=== PATIENT | male | born 1965 | race Caucasian/White ===

== ENCOUNTER 2018-08-14 05:01 | Emergency (ER) | payer BC ==
[~2018-08-14] VITALS: Wt 104.3 kg
--- NOTE | ~2018-08-14 | EKG ---
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
--- NOTE | ~2018-08-14 | EKG ---
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
--- NOTE | ~2018-08-14 | EKG ---
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
[~2018-08-14 05:01] MED LIST: BENICAR HCT 12.1 TAB PO; NEXIUM20 MG/PACK PO
[2018-08-14] MEDS ORDERED: LABETALOL HCL100 MG PO (05:05)
[2018-08-14 05:23] LABS: BASO # 0.1 10*3/uL (0.0-0.1); EOS # 0.1 10*3/uL (0.0-0.4); EOS % 1.9 % (1.0-4.0); HEMATOCRIT 42.5 % (42.0-52.0); HEMOGLOBIN 15.1 g/dl (14.0-18.0); LYMPH # 1.9 10*3/uL (1.3-4.4); LYMPH % 36.4 % (27.0-41.0); MEAN CELL VOLUME 89.1 fl (80.0-94.0); MEAN CORPUSCULAR HGB 31.7 pg (27.0-31.0); MEAN CORPUSCULAR HGB CONC 35.5 g/dl (33.0-37.0); MONO # 0.4 10*3/uL (0.1-1.0); NEUT # 2.7 10*3/uL (2.3-7.9); NEUT % 52.3 % (47.0-73.0); PLATELET COUNT AUTOMATED 174 10*3/uL (130-400); RED BLOOD COUNT 4.77 10*6/uL (4.50-5.90); WHITE BLOOD COUNT 5.2 10*3/uL (4.8-10.8)
[2018-08-14 05:40] LABS: ALBUMIN 3.8 gm/dl (3.1-4.5); ALKALINE PHOSPHATASE 122 U/L (45-117); BUN 24 mg/dl (7-24); CHLORIDE 105 mmol/L (98-107); CREATININE 1.06 mg/dL (0.70-1.30); POTASSIUM 3.3 mmol/L (3.5-5.1); SGOT/AST 53 IU/L (3-35); SGPT/ALT 128 U/L (12-78); SODIUM 142 mmol/L (136-145); TOTAL PROTEIN 7.3 gm/dL (6.4-8.2)
[2018-08-14 05:41] LABS: TROPONIN I < 0.015 ng/ml (<0.045)
[2018-08-14] MEDS ORDERED: PROTONIX40 MG PO (11:29)
[2018-08-14] MEDS ORDERED: PEPCID20 MG PO (11:49)
== END 2018-08-14 11:38 | disposition home or self-care (01) ==
LOC: ED 05:01
PROVIDERS: Emergency Medicine
DX: K29.00 Acute gastritis without bleeding (principal); K21.9 Gastro-esophageal reflux disease without esophagitis; I10 Essential (primary) hypertension; F17.210 Nicotine dependence, cigarettes, uncomplicated; Z79.899 Other long term (current) drug therapy